=== PATIENT | female | born 1955 | race Caucasian/White ===

== ENCOUNTER 2016-08-28 07:58 | Day surgery (SDC) | payer BC ==
[2016-08-08 11:10] VITALS: BMI 32.1
[2016-08-28] MEDS ORDERED: PROPOFOL 20 ML ONE ×2 (08:07)
[2016-08-28] MEDS ORDERED: LIDOCAINE HCL/PF 2% SDV 5ML VIAL ONE (08:08)
[2016-08-28 09:51] VITALS: TEMP 98
[2016-08-28 09:57] VITALS: BP 112/65; PULSE 75
--- NOTE | 2016-08-29 14:49 | PATH ---
Surgical Pathology Report Patient Name: ADRIAN ESPINOZA [facility] [place]. Rec. #: [id number] /Age/Gender: 1955 (Age: 61) / F Account: [id number] [facility] Taken: 08/28/2016 Received: 08/28/2016 Reported: 08/29/2016 Physicians: Tutu He M.D. Specimen(s) Received A: BX DUODENUM B: BX DISTAL ESOPHAGUS C: BX ANTRUM D: BX PROXIMAL RIGHT COLON Clinical History GERD, rule out colon cancer Rule out celiac disease, gastritis, rule out eosinophilic esophagitis, colonic polyp Final Diagnosis A. DUODENUM, BIOPSY: DUODENAL MUCOSA WITH NO PATHOLOGIC FINDINGS. Note: Features suggestive of celiac disease are not identified in this biopsy. B. DISTAL ESOPHAGUS, BIOPSY: ESOPHAGEAL (SQUAMOUS) MUCOSA WITH NO PATHOLOGIC FINDINGS. NO COLUMNAR EPITHELIUM/INTESTINAL METAPLASIA IS IDENTIFIED. Fote: features suggestive of eosinophilic esophagitis are not identified in this biopsy. C. ANTRUM, BIOPSY: MILD CHRONIC GASTRITIS. IMMUNOSTAIN IS NEGATIVE FOR H. PYLORI ORGANISMS. D. PROXIMAL RIGHT COLON, BIOPSY: HYPERPLASTIC POLYP. Electronically Signed Eliza Martinez M.D. Gross Description A. Received in formalin, labeled "duodenum" are 2 goodson, irregular portions of soft tissue averaging 0.3 cm. in greatest dimension. The specimens are submitted in toto in one cassette. B. Received in formalin, labeled "distal esophagus" is a goodson, irregular portion of soft tissue measuring 0.4 cm. in greatest dimension. The specimen is submitted in toto in one cassette. C. Received in formalin, labeled "antrum" are 2 goodson, irregular portions of soft tissue measuring 0.3 and 0.4 cm. in greatest dimension. The specimens are submitted in toto in one cassette. D. Received in formalin, labeled "proximal right colon" is a goodson, irregular portion of soft tissue measuring 0.8 cm. in greatest dimension. The specimen is submitted in toto in one cassette. 08/28/201608/28/2016
== END 2016-08-28 10:00 | disposition home or self-care (01) ==
LOC: FASU-ENDO 07:58
PROVIDERS: ATTEND Internal Medicine Gastroenterology
PROC: 0DB38ZX Excision of Lower Esophagus, Via Natural or Artificial Opening Endoscopic, Diagnostic (ICD-10-PCS; 2016-08-28)
PROC: 0DBK8ZX Excision of Ascending Colon, Via Natural or Artificial Opening Endoscopic, Diagnostic (ICD-10-PCS; principal; 2016-08-28 08:52)
PROC: 0DB98ZX Excision of Duodenum, Via Natural or Artificial Opening Endoscopic, Diagnostic (ICD-10-PCS; 2016-08-28 08:52)
PROC: 0DB68ZX Excision of Stomach, Via Natural or Artificial Opening Endoscopic, Diagnostic (ICD-10-PCS; 2016-08-28 08:52)
DX: Z83.71 Family history of colonic polyps (principal); K63.5 Polyp of colon; K29.50 Unspecified chronic gastritis without bleeding; K20.9 Esophagitis, unspecified; K44.9 Diaphragmatic hernia without obstruction or gangrene
CPT/HCPCS: 88305-TC; 88342-TC

== ENCOUNTER 2017-11-05 04:05 | Emergency (ER) | payer BC ==
[2017-11-05 04:14] VITALS: BP 147/65; PULSE 95; TEMP 97; BMI 70.8
[2017-11-05] MEDS ORDERED: CIPROFLOXACIN 500 MG TABLET (RESTRICTED TO ID) PO ONE (04:27)
[2017-11-05] MEDS ORDERED: PHENAZOPYRIDINE HCL 100 MG TABLET (FP) PO ONE (04:27)
[2017-11-05] MEDS ORDERED: CIPROFLOXACIN 250 MG TABLET (RESTRICTED TO ID) PO ONE (04:28)
[2017-11-05] MEDS ORDERED: PHENAZOPYRIDINE HCL 100 MG TABLET (FP) ONE (04:28)
--- NOTE | 2017-11-05 04:30 | PDOC ---
History of Present Illness - General Chief Complaint: Urinary Problem Stated Complaint: URINARY TRACT INFECTION Time Seen by Provider: 11/05/17 04:26 History Source: Patient - History of Present Illness Initial Comments: 11/05/17 06:35 Presents with urinary frequency and urgency x 1 day. Over the last several hours developed lower back pain. Timing/Duration: reports: getting worse Quality: reports: moderate, dullness Abdominal Pain Onset Location: reports: suprapubic Pain Radiation: reports: no radiation, other (no radiation but reports lower back pain) Activities at Onset: reports: none Treatment Prior to Arrive: improves with: other Aggravating Factors: improves with: Voiding. worse with: Movement Alleviating Factors: worse with: Voiding Past History - Past Medical History Allergies/Adverse Reactions: Allergies Allergy/AdvReac Type Severity Reaction Status Date / Time No Known Allergies Allergy Verified 11/05/17 04:07 Home Medications: Ambulatory Orders Albuterol Sulfate [Proventil HFA Inhaler -] 1 - 2 inh PO DAILY 08/08/16 Multivit-Min/FA/Lycopen/Lutein [Centrum Silver Tablet] 1 each PO DAILY 08/08/16 Ciprofloxacin [Cipro (Restricted To Id)] 500 mg PO Q12H #14 tablet 11/05/17 Pantoprazole Sodium 40 mg PO DAILY 11/05/17 Phenazopyridine HCl [Pyridium] 200 mg PO TID #5 tablet 11/05/17 Rosuvastatin [Crestor -] 10 mg PO DAILY 11/05/17 Anemia: No Asthma: Yes Cancer: No Cardiac Disorders: No CVA: No COPD: No CHF: No Dementia: No Diabetes: No GI Disorders: Yes Disorders: No HTN: No Hypercholesterolemia: Yes Liver Disease: No Seizures: No Thyroid Disease: No - Surgical History Abdominal Surgery: Yes Appendectomy: No Cardiac Surgery: No Cholecystectomy: Yes Lung Surgery: No Neurologic Surgery: No Orthopedic Surgery: No - Immunization History Td Vaccination: Yes Immunization Up to Date: (UNSURE) - Suicide/Smoking/Psychosocial Hx Smoking Status: No Smoking History: Never smoked Have you smoked in the past 12 months: No Number of Cigarettes Smoked Daily: 0 Information on smoking cessation initiated: No Hx Alcohol Use: No Drug/Substance Use Hx: No Substance Use Type: Alcohol Hx Substance Use Treatment: No Review of Systems - Review of Systems All Other Systems: Reviewed and Negative *Physical Exam - Vital Signs Last Vital Signs Temp Pulse Resp BP Pulse Ox 97 F L 95 H 16 147/65 98 11/05/17 04:10 11/05/17 04:10 11/05/17 04:10 11/05/17 04:10 11/05/17 04:10 - Physical Exam General Appearance: Yes: Nourished HEENT: positive: Normal Voice Neck: positive: Supple Respiratory/Chest: positive: Lungs Clear Cardiovascular: positive: Regular Rhythm Gastrointestinal/Abdominal: negative: Tender Lymphatic: negative: Adenopathy Musculoskeletal: positive: Normal Inspection Extremity: positive: Normal Capillary Refill Integumentary: positive: Normal Color Neurologic: positive: Fully Oriented Medical Decision Making - Medical Decision Making 11/05/17 06:39 uti based on hpi (high pre-test prob) abx (prolonged duration because of back pain) pyridium *DC/Admit/Observation/Transfer Diagnosis at time of Disposition: Urinary tract infection Qualifiers: Urinary tract infection type: acute cystitis Hematuria presence: without hematuria Qualified Code(s): N30.00 - Acute cystitis without hematuria - Discharge Dispostion Disposition: HOME Condition at time of disposition: Stable - Prescriptions Prescriptions: Ciprofloxacin [Cipro (Restricted To Id)] 500 mg PO Q12H #14 tablet Phenazopyridine HCl [Pyridium] 200 mg PO TID #5 tablet - Referrals - Patient Instructions Printed Discharge Instructions: DI for Urinary Tract Infection (UTI) - Post Discharge Activity
[2017-11-05 05:37] LABS: URINE APPEARANCE SLCLOUDY; URINE BILIRUBIN NEGATIVE (<2.0 mg/dL); URINE BLOOD 2+ (NEGATIVE); URINE COLOR LTYELLOW; URINE GLUCOSE (UA) NEGATIVE (NEGATIVE); URINE KETONE NEGATIVE (NEGATIVE); URINE LEUK ESTERASE NEGATIVE (NEGATIVE); URINE NITRITE NEGATIVE (NEGATIVE); URINE PROTEIN NEGATIVE (NEGATIVE); URINE UROBILINOGEN NEGATIVE mg/dL (0.2-1.0)
[2017-11-05 05:40] LABS: EPI CELLS MODERATE /HPF (FEW); URINE BACTERIA RARE /hpf (NONE SEEN); URINE MUCUS RARE
[2017-11-05] MEDS ORDERED: ONDANSETRON 4 MG/2 ML VIAL ONE (07:09)
[2017-11-05] MEDS ORDERED: KETOROLAC TROMETHAMINE 30 MG/1 ML VIAL ONE (07:09)
== END 2017-11-05 04:33 | disposition home or self-care (01) ==
LOC: FER 04:05
DX: N30.00 Acute cystitis without hematuria (principal); J45.909 Unspecified asthma, uncomplicated; E78.00 Pure hypercholesterolemia, unspecified
CPT/HCPCS: 81003; 81015; 87086; 99281-25

== ENCOUNTER 2017-11-05 06:58 | Emergency (ER) | payer BC ==
--- NOTE | 2017-11-05 07:07 | PDOC ---
History of Present Illness <Campos Michele - Last Filed: 11/05/17 07:06> - History of Present Illness Initial Comments: 11/05/17 08:39 Chief complaint: Left abdominal pain History of present illness: Pain began last night. Radiation to the groin. Colicky. History of kidney stone 2 years ago. Feels the same Review of systems: No fever or chills, back pain, chest pain, shortness of breath, diarrhea or constipation. There is mild nausea but no vomiting. Remainder systems reviewed and found to be negative Past medical history: Kidney stone, elevated cholesterol, GERD Medications as noted Social history: No tobacco alcohol or nonprescription drugs. Active and without disability Family history reviewed and positive for kidney stones. No early coronary artery disease, diabetes, or other metabolic disturbances Physical exam: Alert and oriented well-developed well-nourished acute distress due to abdominal pain. Cooperative Afebrile, vital signs normal No pallor or icterus. HEENT clear Neck supple without bruit mass or nodes Lungs clear CV regular without murmur rub or gallop Abdomen nondistended. Bowel sounds normal. Soft without masses tenderness organomegaly. No CVAT Neurological intact Extremities no CCE Skin clear, no rash, adequate turgor and wet mucous membranes Impression: Probable renal colic, recurrent, possible associated UTI Plan: IV hydration, Toradol, and Zofran. CT urogram. Further medical management depending on results <Zak Wagner - Last Filed: 11/05/17 10:23> - General Chief Complaint: Pain, Acute Stated Complaint: LEFT FLANK PAIN Time Seen by Provider: 11/05/17 07:06 Past History - Past Medical History Anemia: No Asthma: Yes Cancer: No Cardiac Disorders: No CVA: No COPD: No CHF: No Dementia: No Diabetes: No GI Disorders: Yes Disorders: No HTN: No Hypercholesterolemia: Yes Liver Disease: No Seizures: No Thyroid Disease: No - Surgical History Abdominal Surgery: Yes Appendectomy: No Cardiac Surgery: No Cholecystectomy: Yes Lung Surgery: No Neurologic Surgery: No Orthopedic Surgery: No - Immunization History Td Vaccination: Yes Immunization Up to Date: (UNSURE) - Suicide/Smoking/Psychosocial Hx Smoking Status: No Smoking History: Never smoked Have you smoked in the past 12 months: No Number of Cigarettes Smoked Daily: 0 Hx Alcohol Use: No Drug/Substance Use Hx: No Substance Use Type: Alcohol Hx Substance Use Treatment: No <Campos Michele - Last Filed: 11/05/17 07:06> <Zak Wagner - Last Filed: 11/05/17 10:23> - Past Medical History Allergies/Adverse Reactions: Allergies Allergy/AdvReac Type Severity Reaction Status Date / Time No Known Allergies Allergy Verified 11/05/17 07:00 Home Medications: Ambulatory Orders Albuterol Sulfate [Proventil HFA Inhaler -] 1 - 2 inh PO DAILY 08/08/16 Multivit-Min/FA/Lycopen/Lutein [Centrum Silver Tablet] 1 each PO DAILY 08/08/16 Ciprofloxacin [Cipro -] 500 mg PO Q12H #14 tablet 11/05/17 Oxycodone HCl/Acetaminophen [Percocet 10-325 mg Tablet] 1 tab PO Q4HWA PRN #10 tablet MDD 4 11/05/17 Pantoprazole Sodium 40 mg PO DAILY 11/05/17 Phenazopyridine HCl [Pyridium] 200 mg PO TID #5 tablet 11/05/17 Rosuvastatin [Crestor -] 10 mg PO DAILY 11/05/17 *Physical Exam - Vital Signs Last Vital Signs Temp Pulse Resp BP Pulse Ox 97.4 F L 94 H 18 147/85 96 11/05/17 06:59 11/05/17 06:59 11/05/17 06:59 11/05/17 06:59 11/05/17 06:59 <Zak Wagner - Last Filed: 11/05/17 10:23> ED Treatment Course - LABORATORY CBC & Chemistry Diagram: 11/05/17 07:15 11/05/17 07:15 - ADDITIONAL ORDERS Additional order review: Laboratory Results 11/05/17 07:15 Sodium 135 L Potassium 4.4 Chloride 102 Carbon Dioxide 26 Anion Gap 7 L BUN 20 H Creatinine < 0.8 Creat Clearance w eGFR > 60 Random Glucose 108 H Calcium 9.0 Total Bilirubin 0.6 D AST 29 ALT 26 D Alkaline Phosphatase 92 Total Protein 6.4 Albumin 3.9 11/05/17 07:15 RBC 4.41 MCV 88.4 MCHC 33.2 RDW 13.7 MPV 8.8 Neutrophils % 65.9 Lymphocytes % 25.4 Monocytes % 5.7 Eosinophils % 2.6 Basophils % 0.4 - RADIOLOGY Radiology Studies Ordered: Category Date Time Status SPIRAL- RENAL-STONE CT [CT] Stat CT Scan 11/05/17 07:09 Taken - Medications Given in the ED: ED Medications Discontinued Medications Generic Name Dose Route Start Last Admin Trade Name Jessica PRN Reason Stop Dose Admin Sodium Chloride 1,000 mls @ 1,000 mls/hr 11/05/17 07:09 11/05/17 07:21 Normal Saline - IV 11/05/17 08:08 1,000 mls/hr ASDIR STA Administration Ketorolac Tromethamine 30 mg 11/05/17 07:09 11/05/17 07:22 Toradol Injection - IVPUSH 11/05/17 07:10 30 mg ONCE ONE Administration Ondansetron HCl 4 mg 11/05/17 07:09 11/05/17 07:22 Zofran Injection IVPB 11/05/17 07:10 4 mg ONCE ONE Administration <Zak Wagner - Last Filed: 11/05/17 10:23> Medical Decision Making - Medical Decision Making 11/05/17 08:41 Patient's labs are unremarkable. Her pain is completely resolved and she is urinating normally after treatment. Awaiting results of CT. 11/05/17 10:17 CT scan reveals 3.5 mm stone at the left UV junction. This most likely has passed since the scan. The patient has been pain-free, with abdomen soft and nontender, and no CVAT, since the scan. Discharge with pain medication, lots of fluids, and follow-up with urologist. To return to ER if there were any further symptoms. Continue the antibiotic begun yesterday. Fully ambulatory and in no pain or other discomfort upon discharge to follow-up as recommended <Zak Wagner - Last Filed: 11/05/17 10:23> *DC/Admit/Observation/Transfer <Campos Michele - Last Filed: 11/05/17 07:06> - Discharge Dispostion Admit: No <Zak Wagner - Last Filed: 11/05/17 10:23> Diagnosis at time of Disposition: Renal colic on left side - Discharge Dispostion Disposition: HOME Condition at time of disposition: Improved - Referrals Referrals: Everton Leyva MD [Staff Physician] - 1 week - Patient Instructions Printed Discharge Instructions: DI for Kidney Stones Additional Instructions: Continue your antibiotics and drink lots of fluids Return to ER if pain returns and cannot be controlled with pain medication. Also if there is fever or back pain. Otherwise follow-up with urologist as recommended.
[2017-11-05] MEDS ORDERED: KETOROLAC TROMETHAMINE 30 MG/1 ML VIAL IVPUSH ONE (07:09)
[2017-11-05] MEDS ORDERED: SODIUM CHLORIDE 1,000 ML IV STA (07:09)
[2017-11-05] MEDS ORDERED: ONDANSETRON 4 MG/2 ML VIAL IVPB ONE (07:09)
[2017-11-05 07:21] VITALS: BP 147/85; PULSE 94; TEMP 97.4; BMI 32.1
[2017-11-05 08:07] LABS: MCHC 33.2 g/dl (32.0-36.0)
[2017-11-05 08:10] LABS: BASO % 0.4 % (0-2.0); EOS % 2.6 % (0-4.5); LYMPH % 25.4 % (8-40); MCH 29.4 pg (25.7-33.7); MEAN CELL VOLUME 88.4 fl (80-96); MEAN PLT VOLUME 8.8 fl (7.5-11.1); MONO % 5.7 % (3.8-10.2); NEUT % 65.9 % (42.8-82.8); PLATELET COUNT 272 K/MM3 (134-434); RBC 4.41 M/mm3 (3.60-5.2); RDW 13.7 % (11.6-15.6)
[2017-11-05 08:22] LABS: ALBUMIN 3.9 g/dl (3.5-5.0); ALK PHOS 92 U/L (32-92); ANION GAP 7 (8-16); BILIRUBIN,TOTAL 0.6 mg/dl (0.2-1.0); BLOOD UREA NITROGEN 20 mg/dl (7-18); CHLORIDE 102 mmol/L (98-107); CO2 26 mmol/L (22-28); GLUCOSE,RANDOM 108 mg/dl (74-106); POTASSIUM 4.4 mmol/L (3.5-5.1); SGOT/AST 29 U/L (10-42); SGPT/ALT 26 U/L (10-40); SODIUM 135 mmol/L (136-145); TOT PROT 6.4 g/dl (6.4-8.3)
[2017-11-05 08:33] LABS: CREATININE < 0.8 mg/dl (0.6-1.3)
== END 2017-11-05 10:37 | disposition home or self-care (01) ==
LOC: FER 06:58
PROC: 3E0333Z Introduction of Anti-inflammatory into Peripheral Vein, Percutaneous Approach (ICD-10-PCS; principal; 2017-11-05)
PROC: 3E033GC Introduction of Other Therapeutic Substance into Peripheral Vein, Percutaneous Approach (ICD-10-PCS; 2017-11-05)
PROC: 3E0337Z Introduction of Electrolytic and Water Balance Substance into Peripheral Vein, Percutaneous Approach (ICD-10-PCS; 2017-11-05)
DX: N23 Unspecified renal colic (principal); J45.909 Unspecified asthma, uncomplicated
CPT/HCPCS: 36415; 74176; 80053; 85025; 99282-25; J7030

== ENCOUNTER 2018-02-16 09:12 | Emergency (ER) | payer BC ==
[2018-02-16 09:17] VITALS: BP 134/85; PULSE 98; TEMP 98.7; BMI 32.1
[2018-02-16] MEDS ORDERED: diphenhydrAMINE HCL 25 MG CAPSULE (FP) PO ONE ×2 (09:19→09:23)
--- NOTE | 2018-02-16 09:25 | PDOC ---
Attending Attestation - Resident Resident Name: KlaudiaToña - ED Attending Attestation I have performed the following: I have examined & evaluated the patient, The case was reviewed & discussed with the resident, I agree w/resident's findings & plan, Exceptions are as noted - HPI HPI: 02/16/18 09:23 62-year-old female here complaining of bug bite to the right upper arm. States happened just prior to arrival she felt a scratching feeling then suddenly noticed she had a wheel under her arm surrounded by redness now complaining of pain in the axilla no fevers no chills no history of severe ALLERGIC reactions states it's not itching at the moment no tongue or lip swelling no difficulty breathing - Physicial Exam PE: 02/16/18 09:24 Awake alert no acute distress tongue without swelling lips no swelling no stridor lungs are clear bilaterally heart is regular without any murmurs rubs or gallops right arm with a small area of erythema 1" x 2" nonraised no current wheal - Medical Decision Making 02/16/18 09:25 Patient with an insect bite with localized reaction in the acute setting. Too early for infection will treat with Benadryl and topical hydrocortisone and Neosporin ointment
--- NOTE | 2018-02-16 09:47 | PDOC ---
History of Present Illness - General Chief Complaint: Redness To Affected Area Stated Complaint: INSECT BITE TO RIGHT UPPER ARM Time Seen by Provider: 02/16/18 09:18 History Source: Patient Exam Limitations: No Limitations - History of Present Illness Initial Comments: Pt, with PMH of HLD, asthma, and GERD, presents 30 minutes after an insect bite to her R upper arm. The pt states she was inside of her house when she felt a bite and "stinging" sensation over her R arm, which turned into a wheal. She did not see the insect, nor did she see any spider or tick on her clothing. She did not notice the removal of a stinger. She did not take any benadryl nor did she need to take her albuterol inhaler. She denies any fevers/chills, SOB, feelings of throat swelling, nausea/vomiting, or diarrhea. 02/16/18 10:16 Past History - Travel Traveled outside of the country in the last 30 days: No Close contact w/someone who was outside of country & ill: No - Past Medical History Allergies/Adverse Reactions: Allergies Allergy/AdvReac Type Severity Reaction Status Date / Time No Known Allergies Allergy Verified 02/16/18 09:13 Home Medications: Ambulatory Orders Albuterol Sulfate [Proventil HFA Inhaler -] 1 - 2 inh PO DAILY 08/08/16 Multivit-Min/FA/Lycopen/Lutein [Centrum Silver Tablet] 1 each PO DAILY 08/08/16 Pantoprazole Sodium 40 mg PO DAILY 11/05/17 Rosuvastatin [Crestor -] 10 mg PO DAILY 11/05/17 Anemia: No Asthma: Yes Cancer: No Cardiac Disorders: No CVA: No COPD: No CHF: No Dementia: No Diabetes: No GI Disorders: Yes (GERD) Disorders: No HTN: No Hypercholesterolemia: Yes Liver Disease: No Seizures: No Thyroid Disease: No - Surgical History Abdominal Surgery: Yes (shahrzad) Appendectomy: No Cardiac Surgery: No Cholecystectomy: Yes Lung Surgery: No Neurologic Surgery: No Orthopedic Surgery: No - Immunization History Td Vaccination: Yes Immunization Up to Date: (UNSURE) - Suicide/Smoking/Psychosocial Hx Smoking Status: No Smoking History: Never smoked Have you smoked in the past 12 months: No Number of Cigarettes Smoked Daily: 0 Information on smoking cessation initiated: No Hx Alcohol Use: No Drug/Substance Use Hx: No Substance Use Type: Alcohol Hx Substance Use Treatment: No Review of Systems - Review of Systems Able to Perform ROS?: Yes Is the patient limited Malian proficient: No Constitutional: Yes: Weight Stable. No: Chills, Diaphoresis, Fever, Loss of Appetite HEENTM: No: Recent change in vision, Throat Pain, Throat Swelling, Difficulty Swallowing, Mouth Swelling Respiratory: No: Cough, Shortness of Breath, Wheezing Cardiac (ROS): No: Chest Pain, Irregular Heart Rate, Palpitations, Chest Tightness ABD/GI: No: Constipated, Diarrhea, Difficulty Swallowing, Nausea, Vomiting : No: Burning, Dysuria, Urgency Musculoskeletal: No: Joint Pain, Joint Swelling Integumentary: Yes: Change in Color, Erythema, Lesions (wheal and erythema over R upper arm), Pruritus. No: Rash, Sweating Neurological: No: Headache, Paresthesia Endocrine: No: Excessive Sweating Hematologic/Lymphatic: No: Anemia, Blood Clots, Easy Bleeding All Other Systems: Reviewed and Negative *Physical Exam - Vital Signs Last Vital Signs Temp Pulse Resp BP Pulse Ox 98.7 F 98 H 18 134/85 98 02/16/18 09:12 02/16/18 09:12 02/16/18 09:12 02/16/18 09:12 02/16/18 09:12 - Physical Exam General Appearance: Yes: Nourished, Appropriately Dressed. No: Apparent Distress HEENT: positive: EOMI, Normal ENT Inspection, Normal Voice, Symmetrical, Pharynx Normal, Hearing Grossly Normal. negative: Muffled/Hoarse voice, Pharyngeal Erythema, Tonsillar Exudate, Tonsillar Erythema, Rhinorrhea Neck: positive: Trachea midline, Normal Thyroid, Supple. negative: Tender, Rigid, Stridor, Lymphadenopathy (R), Lymphadenopathy (L) Respiratory/Chest: positive: Lungs Clear, Normal Breath Sounds. negative: Chest Tender, Respiratory Distress, Accessory Muscle Use, Decreased Breath Sounds, Stridor, Wheezing Cardiovascular: positive: Regular Rhythm, Regular Rate, S1, S2. negative: Edema , JVD, Murmur, Tachycardia Vascular Pulses: Carotid (R): 4+, Carotid (L): 4+ Gastrointestinal/Abdominal: positive: Normal Bowel Sounds, Flat, Soft. negative : Tender, Organomegaly, Pulsatile Mass Lymphatic: negative: Adenopathy, Tenderness Musculoskeletal: positive: Normal Inspection. negative: CVA Tenderness Extremity: positive: Normal Capillary Refill, Normal Inspection, Normal Range of Motion, Pelvis Stable. negative: Tender, Delayed Capillary Refill Integumentary: positive: Dry, Warm, Erythema, Hives (Large 3-4 cm diamerter circular wheal over R tricep area with puncture bite in the center. No drainage , no other rashes. No tick or stinger.). negative: Normal Color, Rash, Ecchymosis, Bruising Neurologic: positive: blind lacer II-XII NML intact, Fully Oriented, Alert, Normal Mood/ Affect, Normal Response, Motor Strength 5/5 Medical Decision Making - Medical Decision Making (entered later). Pt seen at bedside, also seen by Dr. Wooten. Pt has raised erythematous wheal over R posterior arm. She was stung by an insect 30 minutes before presentation, and has tried no intervention. No SOB, no throat swelling, no nausea/vomiting, no diarrhea. No tick or stinger noted at the puncture site. Provided 25 mg Benadryl. Pt symptoms improved (decreased pruritus) and wheal decreased after benadryl. Pt discharged home with return precautions. Pt in agreement with plan. 02/16/18 10:26 *DC/Admit/Observation/Transfer Diagnosis at time of Disposition: Hypersensitivity reaction at injection site Insect bite of arm, right Qualifiers: Encounter type: initial encounter Qualified Code(s): S40.861A - Insect bite ( nonvenomous) of right upper arm, initial encounter - Discharge Dispostion Disposition: HOME Condition at time of disposition: Improved Decision to Admit order: No - Referrals Referrals: [facility] [place] [Provider Group] - Patient Instructions Printed Discharge Instructions: DI for Insect Allergy, DI for Insect Bites and Stings Additional Instructions: You were seen in the ER today for an insect sting to your right arm. You can continue to take benadryl (25 mg) at home as needed. You may also use an ice pack or take tylenol or ibuprofen as needed for pain and swelling. Please see your primary care doctor or return to the ER if symptoms continue. Please return to the ER if you have worsening pain or swelling, shortness of breath, nausea/vomiting, feelings of tightness in your throat, or any other concerns. - Post Discharge Activity
== END 2018-02-16 10:00 | disposition home or self-care (01) ==
LOC: FER 09:12
DX: S40.861A Insect bite (nonvenomous) of right upper arm, initial encounter (principal); E78.5 Hyperlipidemia, unspecified; K21.9 Gastro-esophageal reflux disease without esophagitis; J45.909 Unspecified asthma, uncomplicated; W57.XXXA Bitten or stung by nonvenomous insect and other nonvenomous arthropods, initial encounter; Y93.89 Activity, other specified; Y92.9 Unspecified place or not applicable
CPT/HCPCS: 99283-25

== ENCOUNTER 2019-04-01 05:59 | Emergency (ER) | payer BC ==
--- NOTE | 2019-04-01 06:01 | PDOC ---
History of Present Illness - General Chief Complaint: Chest Pain Stated Complaint: CHEST PAIN Time Seen by Provider: 04/01/19 06:01 - History of Present Illness Initial Comments: 04/01/19 06:29 This 63-year-old woman with a history of HLD/GERD/asthma/kidney stones presents with a few hour history of lower substernal chest pressure. Patient was not awakened with the discomfort, stating that she did not sleep well and sensation began soon after being awakened by text notification from her phone. Patient states that the sensation "comes and goes", somewhat worse with movement but not with deep breathing. No change with position. No nausea/vomiting, no diaphoresis. She has very mild sensation of numbness in the upper portion of her left arm that developed during the same period of time. No abdominal pain noted. No lower extremity edema or pain. No history of trauma Patient is under extreme personal stress: Her son suddenly approximately 3 weeks ago. She states that she had been crying extensively yesterday. Cardiac risk factors: HLD/obesity; no smoking/HTN/DM/family history Medications as noted below No known ALLERGIES Past History - Past Medical History Allergies/Adverse Reactions: Allergies Allergy/AdvReac Type Severity Reaction Status Date / Time No Known Allergies Allergy Verified 02/16/18 09:13 Home Medications: Ambulatory Orders Albuterol Sulfate [Proventil HFA Inhaler -] 1 - 2 inh PO DAILY 08/08/16 Multivit-Min/FA/Lycopen/Lutein [Centrum Silver Tablet] 1 each PO DAILY 08/08/16 Pantoprazole Sodium 40 mg PO DAILY 11/05/17 Rosuvastatin [Crestor -] 10 mg PO DAILY 11/05/17 Anemia: No Asthma: Yes Cancer: No Cardiac Disorders: No CVA: No COPD: No CHF: No Dementia: No Diabetes: No GI Disorders: Yes (GERD) Disorders: No HTN: No Hypercholesterolemia: Yes Liver Disease: No Seizures: No Thyroid Disease: No - Surgical History Abdominal Surgery: Yes (shahrzad) Appendectomy: No Cardiac Surgery: No Cholecystectomy: Yes Lung Surgery: No Neurologic Surgery: No Orthopedic Surgery: No - Immunization History Td Vaccination: Yes Immunization Up to Date: (UNSURE) - Suicide/Smoking/Psychosocial Hx Smoking Status: No Smoking History: Never smoked Have you smoked in the past 12 months: No Number of Cigarettes Smoked Daily: 0 Hx Alcohol Use: No Drug/Substance Use Hx: No Substance Use Type: Alcohol Hx Substance Use Treatment: No Cardiac Specific PMH - Complaint Specific PMHX Pacemaker: No Review of Systems - Review of Systems Able to Perform ROS?: Yes Comments:: 12 point review of systems is negative except for what is noted in the history of present illness *Physical Exam - Vital Signs Last Vital Signs Temp Pulse Resp BP Pulse Ox 97.9 F 94 H 14 141/79 95 04/01/19 06:06 04/01/19 06:06 04/01/19 06:06 04/01/19 06:06 04/01/19 06:06 - Physical Exam Comments: GENERAL: Adult female, alert and oriented 3, occasionally tearful but in no acute distress secondary to pain HEAD: Normal with no signs of trauma. EYES: PERRLA, EOMI, sclera anicteric, conjunctiva clear. ENT: Ears normal, nares patent, oropharynx clear without exudates. Moist mucous membranes. NECK: Normal range of motion, supple without lymphadenopathy, JVD, or masses. LUNGS: Breath sounds equal, clear to auscultation bilaterally. No wheezes, and no crackles. CHEST WALL: Moderate tenderness to palpation medial portion of left costal margin; no step-offs or crepitus No sternal or other rib cage tenderness present HEART:Regular rate and rhythm, normal S1 and S2 without murmur, rub or gallop. ABDOMEN:.normal bowel sounds No guarding,tenderness or rebound.No masses No distention. EXTREMITIES: Normal range of motion, no edema. No clubbing or cyanosis. No erythema, or tenderness. NEUROLOGICAL: Cranial nerves II through XII grossly intact. Normal speech. No focal neurological deficits. Twelve-lead electrocardiogram performed: Normal sinus rhythm at 79 bpm; axis, intervals and waveforms are all unchanged from EKG dated 10/18/15. No acute ST or T-wave abnormalities seen. No acute cardiac arrhythmia seen ED Treatment Course - LABORATORY CBC & Chemistry Diagram: 04/01/19 07:00 04/01/19 07:00 Medical Decision Making - Medical Decision Making This 63-year-old woman presents with a few hour history of lower substernal intermittent chest pressure not accompanied by associated symptoms. Discomfort is somewhat worsened with position . She has 2 risk factors for cardiac disease (HLD/recently) of note, she is under extreme personal stress and recent weeks (son suddenly 3 weeks ago). She states that she had episode of prolonged crying yesterday (3 hours). Exam as noted, notable for tenderness of the left medial costal margin. Twelve-lead EKG today is unchanged from tracing dated 10/18/15. Although chest wall strain likely cause of today's episode of chest discomfort ( especially in light of patient's recent prolonged crying), she does have 2 risk factors for coronary artery disease. CBC/chemistry profile and troponin will be evaluated. 04/01/19 07:13 Case signed out to *DC/Admit/Observation/Transfer - Discharge Dispostion Condition at time of disposition: Good - Referrals - Patient Instructions - Post Discharge Activity
[2019-04-01 06:11] VITALS: TEMP 97.9; BMI 33.2
[2019-04-01 07:33] LABS: BASO % 0.5 % (0-2.0); EOS % 3.9 % (0-4.5); HEMATOCRIT 37.9 % (32.4-45.2); HEMOGLOBIN 12.7 GM/dl (10.7-15.3); LYMPH % 30.2 % (8-40); MCHC 33.6 g/dl (32.0-36.0); MEAN CELL VOLUME 89.4 fl (80-96); MEAN PLT VOLUME 9.1 fl (7.5-11.1); NEUT % 58.4 % (42.8-82.8); PLATELET COUNT 257 K/MM3 (134-434); RBC 4.24 M/mm3 (3.60-5.2); WHITE BLOOD COUNT 6.1 K/mm3 (4.0-10.8)
[2019-04-01 07:42] LABS: ALBUMIN 3.7 g/dl (3.4-5.0); BILIRUBIN,TOTAL 0.5 mg/dl (0.2-1); CALCIUM 9.5 mg/dl (8.5-10); CREATININE 0.7 mg/dl (0.55-1.3); POTASSIUM 4.2 mmol/L (3.5-5.1); TOT PROT 6.6 g/dl (6.4-8.2)
--- NOTE | 2019-04-01 08:01 | PDOC ---
*Physical Exam - Vital Signs Last Vital Signs Temp Pulse Resp BP Pulse Ox 97.9 F 94 H 14 141/79 95 04/01/19 06:06 04/01/19 06:06 04/01/19 06:06 04/01/19 06:06 04/01/19 06:06 Heart Score/ECG Review - History History: Slightly suspicious - Electrocardiogram EKG: Non specific repolarization disturbance - Age Age: >/= 65 - Risk Factors Based on the list above the patient has:: 1-2 risk factors - Troponin Troponin: </= normal limit - Score Heart Score - Total: 4 ED Treatment Course - LABORATORY CBC & Chemistry Diagram: 04/01/19 07:00 04/01/19 07:00 - ADDITIONAL ORDERS Additional order review: Laboratory Results 04/01/19 07:00 Troponin I < 0.03 04/01/19 07:00 RBC 4.24 MCV 89.4 MCHC 33.6 RDW 14.0 MPV 9.1 Neutrophils % 58.4 Lymphocytes % 30.2 Monocytes % 7.0 Eosinophils % 3.9 Basophils % 0.5 Medical Decision Making - Medical Decision Making 04/01/19 08:01 Care received at [address] Gonzalez Briefly, pt has hx HL, asthma, GERD presents to the ED with sternal chest discomfort x 1 day Relates pain to emotional distress over recent sudden passing of 40yo son Reports pain has been coming and going for the last week, made worse with palpation of the sternum and with certain movements Reports rubbing her sternum up and down during crying episodes about her son This morning at 4:30am, she woke up and due to persistence of pain, presented to the ED for evaluation No associated dizziness, headache, weakness/numbness, diaphoresis, N/V Pt had similar chest discomfort years ago, also in the setting of a stressful situation that self resolved She notes a reportedly normal echo and stress test 1 year ago Plan at sign out for 2nd trop, dispo First troponin negative, second trop ordered CXR also ordered to r/o structural disease Pt has been chest pain free since arriving to ED Eager to go home, but amenable to staying for 2nd trop and CXR 04/01/19 09:11 CXR with questionable RUQ pneumoperitoneum, Dr. Torre recommending further imaging with abdominal series Pt continues to be asymptomatic, no chest pain, abd distention or abd ttp/ discomfort Abdominal series including upright, R lateral decubitus, and flat obtained, much better quality film Negative for pneumoperitoneum 2nd trop neg Pt is well appearing, clinically stable for DC home I discussed the physical exam findings, ancillary test results and final diagnoses with the patient. I answered all of the patient's questions. The patient was satisfied with the care received and felt comfortable with the discharge plan and treatment plan. The patient will call their primary care physician within 24 hours to arrange follow-up and will return to the Emergency Department with any new, persistent or worsening symptoms. *DC/Admit/Observation/Transfer Diagnosis at time of Disposition: Chest discomfort, Stress at home, Anterior chest wall pain - Discharge Dispostion Disposition: HOME Condition at time of disposition: Good - Referrals - Patient Instructions Printed Discharge Instructions: DI for Chest Pain Additional Instructions: Follow up with your primary doctor within 1-2 days. Return to the emergency department if you have any new, worsening, or concerning symptoms. We hope you feel better soon. Dr. Guerrier - Post Discharge Activity - Attestations Physician Attestion: 04/01/19 09:11 I, Dr. Ruddy Guerrier MD, attest that this document has been prepared under my direction and personally reviewed by me in its entirety. I further attest, that it accurately reflects all work, treatment, procedures and medical decision -making performed by me.
[2019-04-01 08:55] VITALS: BP 140/85; PULSE 76
--- NOTE | 2019-04-01 14:09 | EKG ---
Test Reason : Blood Pressure : / mmHG Vent. Rate : 079 BPM Atrial Rate : 079 BPM P-R Int : 138 ms QRS Dur : 086 ms QT Int : 376 ms P-R-T Axes : 035 022 005 degrees QTc Int : 431 ms NORMAL SINUS RHYTHM NONSPECIFIC T WAVE ABNORMALITY ABNORMAL ECG WHEN COMPARED WITH ECG OF 18-OCT-2015 12:19, NO SIGNIFICANT CHANGE WAS FOUND Confirmed by CELY MARQUES MD ([id number]) on 04/01/2019 2:09:40 PM Referred By: MD DEL REAL Confirmed By:CELY MARQUES MD
== END 2019-04-01 09:21 | disposition home or self-care (01) ==
LOC: FER 05:59
DX: R07.89 Other chest pain (principal); Z63.8 Other specified problems related to primary support group; E78.5 Hyperlipidemia, unspecified; K21.9 Gastro-esophageal reflux disease without esophagitis; J45.909 Unspecified asthma, uncomplicated; Z87.442 Personal history of urinary calculi
CPT/HCPCS: 36415; 71045-TC-FY; 74021-TC-FY; 80053; 82550; 84484; 85025; 93005; 99284-25

== ENCOUNTER 2021-07-03 06:20 | Day surgery (SDC) | payer OTHER, BC ==
[2021-07-02 12:32] VITALS: BMI 34.2
[2021-07-03] MEDS ORDERED: LIDOCAINE 1%/EPI 1:100000 (20 ML MULTI DOSE VIAL) ONE (07:15)
[2021-07-03] MEDS ORDERED: MINERAL OIL 25 ML OIL ONE ×3 (07:51→09:56)
[2021-07-03] MEDS ORDERED: MIDAZOLAM HCL 2 MG/2 ML SINGLE DOSE VIAL ONE (08:14)
[2021-07-03] MEDS ORDERED: BACITRACIN 15 GM TUBE TOPICAL OINTMENT ONE (08:43)
[2021-07-03] MEDS ORDERED: ONDANSETRON 4 MG/2 ML VIAL IVPUSH PRN (10:23)
[2021-07-03] MEDS ORDERED: PROMETHAZINE HCL 25 MG/1 ML VIAL IVPUSH PRN (10:23)
[2021-07-03] MEDS ORDERED: oxyCODONE HCL 5 MG TABLET PO PRN (10:23)
[2021-07-03] MEDS ORDERED: LACTATED RINGERS SOLUTION 1,000 ML IV SCH (10:30)
[2021-07-03 11:15] VITALS: TEMP 97
[2021-07-03] MEDS ORDERED: oxyCODONE HCL 5 MG TABLET ONE (11:25)
[2021-07-03 12:08] VITALS: BP 115/64; PULSE 70
== END 2021-07-03 12:17 | disposition home or self-care (01) ==
LOC: FASU 06:20
PROVIDERS: ATTEND Plastic Surgery
PROC: 0HB7XZZ Excision of Abdomen Skin, External Approach (ICD-10-PCS; 2021-07-03)
PROC: 0HR5X74 Replacement of Chest Skin with Autologous Tissue Substitute, Partial Thickness, External Approach (ICD-10-PCS; principal; 2021-07-03 08:40)
DX: S21.001A Unspecified open wound of right breast, initial encounter (principal); X58.XXXA Exposure to other specified factors, initial encounter; Y93.9 Activity, unspecified; Y92.9 Unspecified place or not applicable
CPT/HCPCS: 94760

== ENCOUNTER 2021-11-15 14:19 | Emergency (ER) | payer OTHER, BC ==
[2021-11-15 14:38] VITALS: BMI 35.2
[2021-11-15 15:01] LABS: HEMATOCRIT 39.6 % (32.4-45.2); HEMOGLOBIN 13.4 G/dL (10.7-15.3); MCH 29.1 pg (25.7-33.7); MCHC 33.7 g/dl (32.0-36.0); MEAN CELL VOLUME 86.2 fl (80-96); MEAN PLT VOLUME 8.7 fl (7.5-11.1); PLATELET COUNT 251.3 10^3/uL (134-434); RBC 4.59 10^6/uL (3.60-5.2); RDW 16.1 % (11.6-15.6); WHITE BLOOD COUNT 9.2 10^3/uL (4.0-10.8)
[2021-11-15 15:13] LABS: INR 1.07 (0.83-1.09); PROTHROMBIN TIME (PATIENT) 12.3 SEC (9.7-13.0)
[2021-11-15 15:18] LABS: ALBUMIN 4.2 g/dl (3.4-5.0); BILIRUBIN,TOTAL 0.8 mg/dl (0.2-1); CALCIUM 9.5 mg/dl (8.5-10); CREATININE 0.7 mg/dl (0.55-1.3); TOT PROT 7.1 g/dl (6.4-8.2)
[2021-11-15 15:37] VITALS: BP 123/74; PULSE 88; TEMP 98
== END 2021-11-15 15:40 | disposition home or self-care (01) ==
LOC: FER 14:19
DX: R19.5 Other fecal abnormalities (principal)
CPT/HCPCS: 36415; 80053; 82272; 85025; 85610; 86850; 86900; 86901; 99283-25

== ENCOUNTER 2022-01-14 19:41 | Emergency (ER) | payer OTHER, BC ==
[2022-01-14 19:49] VITALS: BP 149/66; PULSE 100; TEMP 98.5; BMI 33.2
[2022-01-14] MEDS ORDERED: ALBUTEROL SO4 2.5/IPRATROPIUM 0.5 INH SOL 3 ML VIAL.NEB. NEB ONE ×2 (20:02→21:19)
[2022-01-14] MEDS ORDERED: predniSONE 20 MG TABLET (UD) ONE (20:02)
[2022-01-14] MEDS ORDERED: predniSONE 20 MG TABLET (UD) PO ONE (20:03)
[2022-01-14] MEDS: ALBUTEROL SO4 2.5/IPRATROPIUM 0.5 INH SOL 3 ML VIAL.NEB. NEB SCH ×3 (20:06→21:22)
== END 2022-01-14 21:40 | disposition home or self-care (01) ==
LOC: FER 19:41
PROC: 3E0F7GC Introduction of Other Therapeutic Substance into Respiratory Tract, Via Natural or Artificial Opening (ICD-10-PCS; principal; 2022-01-14)
PROC: 3E0F7GC Introduction of Other Therapeutic Substance into Respiratory Tract, Via Natural or Artificial Opening (ICD-10-PCS; 2022-01-14)
DX: J02.9 Acute pharyngitis, unspecified (principal); J45.21 Mild intermittent asthma with (acute) exacerbation
CPT/HCPCS: 71045-TC-FY; 99283-25

== ENCOUNTER 2022-03-27 08:22 | Day surgery (SDC) | payer OTHER, BC ==
[2022-03-26 14:09] VITALS: BMI 33.2
[2022-03-27 10:34] VITALS: RESP 18
[2022-03-27 11:51] VITALS: BP 105/55; PULSE 77; TEMP 98
== END 2022-03-27 11:50 | disposition home or self-care (01) ==
LOC: FASU-ENDO 08:22
PROVIDERS: ATTEND Internal Medicine Gastroenterology
PROC: 0DBL8ZX Excision of Transverse Colon, Via Natural or Artificial Opening Endoscopic, Diagnostic (ICD-10-PCS; 2022-03-27)
PROC: 0DBK8ZX Excision of Ascending Colon, Via Natural or Artificial Opening Endoscopic, Diagnostic (ICD-10-PCS; principal; 2022-03-27 10:41)
DX: Z12.11 Encounter for screening for malignant neoplasm of colon (principal); Z86.010 Personal history of colon polyps; Z83.71 Family history of colonic polyps; D12.2 Benign neoplasm of ascending colon
CPT/HCPCS: 88305-TC; C9803-CS; U0003; U0005

== ENCOUNTER 2022-10-11 00:57 | Emergency (ER) | payer OTHER, BC ==
[2022-10-11] MEDS ORDERED: ALBUTEROL SO4 2.5/IPRATROPIUM 0.5 INH SOL 3 ML VIAL.NEB. NEB ONE ×3 (01:03→02:39)
[2022-10-11 01:19] VITALS: BP 160/86; PULSE 129; RESP 18; TEMP 98.3; BMI 33.2
[2022-10-11] MEDS ORDERED: methylPREDNISolone NA SUCC 125 MG/2 ML VIAL IM ONE (01:30)
[2022-10-11] MEDS ORDERED: KETOROLAC TROMETHAMINE 30 MG/1 ML VIAL IVPUSH ONE (01:30)
[2022-10-11] MEDS ORDERED: SODIUM CHLORIDE 1,000 ML IV STA (01:30)
[2022-10-11] MEDS ORDERED: KETOROLAC TROMETHAMINE 30 MG/1 ML VIAL ONE (01:33)
[2022-10-11] MEDS ORDERED: methylPREDNISolone NA SUCC 125 MG/2 ML VIAL ONE (01:33)
== END 2022-10-11 03:47 | disposition home or self-care (01) ==
LOC: FER 00:57
PROC: 3E0F7GC Introduction of Other Therapeutic Substance into Respiratory Tract, Via Natural or Artificial Opening (ICD-10-PCS; principal; 2022-10-11)
PROC: 3E0F7GC Introduction of Other Therapeutic Substance into Respiratory Tract, Via Natural or Artificial Opening (ICD-10-PCS; 2022-10-11)
PROC: 3E0333Z Introduction of Anti-inflammatory into Peripheral Vein, Percutaneous Approach (ICD-10-PCS; 2022-10-11)
PROC: 3E023GC Introduction of Other Therapeutic Substance into Muscle, Percutaneous Approach (ICD-10-PCS; 2022-10-11)
PROC: 3E0337Z Introduction of Electrolytic and Water Balance Substance into Peripheral Vein, Percutaneous Approach (ICD-10-PCS; 2022-10-11)
DX: N20.0 Calculus of kidney (principal); J45.21 Mild intermittent asthma with (acute) exacerbation
CPT/HCPCS: 74176-TC; 99284-25

== ENCOUNTER 2023-11-07 15:16 | Emergency (ER) | payer OTHER, BC ==
[2023-11-07] MEDS ORDERED: predniSONE 20 MG TABLET (UD) ONE (15:41)
[2023-11-07] MEDS ORDERED: ALBUTEROL SO4 2.5/IPRATROPIUM 0.5 INH SOL 3 ML VIAL.NEB. NEB ONE (15:41)
[2023-11-07 15:46] VITALS: BP 130/71; PULSE 95; RESP 16; TEMP 97.4; BMI 32.2
[2023-11-07] MEDS: predniSONE 20 MG TABLET (UD) PO ONE (15:47)
[2023-11-07] MEDS: ALBUTEROL SO4 2.5/IPRATROPIUM 0.5 INH SOL 3 ML VIAL.NEB. NEB ONE (15:47)
[2023-11-07] MEDS ORDERED: AZITHROMYCIN 500 MG TABLET ONE (17:26)
[2023-11-07] MEDS: AZITHROMYCIN 250 MG TABLET PO ONE (17:31)
== END 2023-11-07 17:32 | disposition home or self-care (01) ==
LOC: FER 15:16
PROC: 3E0F7GC Introduction of Other Therapeutic Substance into Respiratory Tract, Via Natural or Artificial Opening (ICD-10-PCS; principal; 2023-11-07)
DX: J20.9 Acute bronchitis, unspecified (principal); R09.81 Nasal congestion; R05.9 Cough, unspecified; Z20.822 Contact with and (suspected) exposure to COVID-19
CPT/HCPCS: 0241U-QW; 71046-TC-FY; 93005; 99285-25